=== PATIENT | male | born 1965 | race Caucasian/White ===

== ENCOUNTER 2024-06-01 13:43 | Outpatient (AMB) | payer BC, SELFPAY ==
--- NOTE | 2024-06-01 14:05 | A.OFFVIS_ITS ---
Intake Visit Reasons: erectile dysfunction Intake Note: New Patient presents for initial visit for erectile dysfunction Urology Medications: none Blood Thinner: none Head Golf Professional Required: Yes Head Golf Professional Name: TANIA OCHOABRAN Accompanied by: Self / Same As Patient Allergies No Known Allergies Allergy (Verified 06/01/24 14:38) Medication List - Last Reconciled 06/01/24 by KATY Nolasco No Known Home Meds HPI Comments Details: Howard is a 58-year-old Haitian-speaking male patient of . He has a past medical history of bilateral inguinal hernias and gynecomastia. He presents to the office today as a new patient for ongoing issues with low libido as well as urinary urgency and frequency. He reports having followed up with his PCP at which time recommendations were made for urology referral for further assessment evaluation. He reports low libido has been present for many years and feels this could potentially be related to working 3rd shift. He does report being able to obtain and maintain erections however finds sexual desire to be difficult. He also reports noting episodes of urinary urgency and frequency. He otherwise denies hematuria, dysuria, foul smelling urine, changes to urinary stream, flank pain, fever, and or chills. We discussed at length potential causes of low libido as well as lower urinary tract symptoms patient is experiencing. In office urinalysis results reviewed with the patient today. He otherwise offers no other issues or concerns at this time. [facility] Medical History Inguinal hernia, bilateral Hepatitis A antibody positive Gynecomastia Surgical History History of inguinal hernia repair Review of Systems Const All systems reviewed & are unremarkable except as noted in HPI and below Physical Exam Const General: cooperative, healthy appearing, comfortable, no acute distress, well developed, alert and awake Orientation/consciousness: patient oriented x3 Limitations: language barrier HEENT Head: Yes normal to inspection, Yes normocephalic and Yes atraumatic Ears: hearing grossly normal bilaterally Eyes General: appearance normal, both eyes and all related structures Neck Neck: Yes normal visual inspection and Yes trachea midline Chest Chest palpation & inspection: normal inspection of the chest Resp Effort & Inspection: normal respiratory effort and able to speak in complete sentences Cardio Rate: regular rate GI Inspection: Yes normal to inspection General: Yes no CVA tenderness Back/Spine/Pelvis Back: no CVA tenderness Skin General skin exam: no rashes or lesions noted Neuro General: patient oriented x3 Extrem General: Yes normal to inspection Psych Appearance: grossly normal and well kempt Mental Status: mental status grossly normal Speech and movement: Normal speech and movement present and Clear speech present Affect: normal affect Attitude: cooperative Thought process: Normal thought process present Thought content: Normal thought content present Insight: Fair insight present (Psych) Judgement: Fair judgement present (Psych) Results AMB Urinalysis, Automated UA Leukoctes 0 Gonzalo/uL Last Edit by [employer] on 06/01/24 14:18 UA Nitrite Last Edit by [employer] on 06/01/24 14:18 UA Urobilinogen 0.2 mg/dL Last Edit by [employer] on 06/01/24 14:18 UA Protein 0 mg/dL Last Edit by [employer] on 06/01/24 14:18 UA pH 6.0 Last Edit by [employer] on 06/01/24 14:18 UA Blood 10 Toñito/uL Last Edit by [employer] on 06/01/24 14:18 UA Specific [place] 1.010 Last Edit by [employer] on 06/01/24 14:18 UA Ketone Last Edit by [employer] on 06/01/24 14:18 UA Bilirubin 0 mg/dL Last Edit by [employer] on 06/01/24 14:18 UA Glucose 0 mg/dL Last Edit by [employer] on 06/01/24 14:18 Results Reviewed Results Reviewed: Laboratory Last Values Urine pH (Auto) 6.0 06/01/24 14:07 Specific [place] (Auto) 1.010 06/01/24 14:07 Urine Protein (Auto) 0 mg/dL 06/01/24 14:07 Glucose (UA)(Auto) 0 mg/dL 06/01/24 14:07 Urine Blood (Auto) 10 Toñito/uL 06/01/24 14:07 Urine Bilirubin (Auto) 0 mg/dL 06/01/24 14:07 Urine Urobilinogen (Auto) 0.2 mg/dL 06/01/24 14:07 Leukocyte Esterase (Auto) 0 Gonzalo/uL 06/01/24 14:07 Assessment & Plan Assessment & Plan (1) Low libido: Code(s): R68.82 - Decreased libido Category: Medical (2) Urinary frequency: Code(s): R35.0 - Frequency of micturition Category: Medical (3) Urinary urgency: Code(s): R39.15 - Urgency of urination Category: Medical Plan In office urinalysis results reviewed with the patient today; as noted above. Discussed obtaining testosterone and PSA for further assessment evaluation. Will obtain retroperitoneal ultrasound for further assessment evaluation. Discussed lifestyle modifications to assist with lower urinary tract symptoms as well as low libido. Follow-up in 1-3 months with imaging and labs to be completed prior; or sooner with any issues, concerns, and or questions. Orders: Orders Testosterone, Free/Total Today E11.69 - Type 2 diabetes mellitus with other specified complication, N52.1 - Erectile dysfunction due to diseases classified elsewhere US retroperitoneal comp Today R35.0 - Frequency of micturition, R39.15 - Urgency of urination, R68.82 - Decreased libido AMB Urinalysis Automated Today Z13.9 - Encounter for screening, unspecified Prostate Specific Antigen Today R35.0 - Frequency of micturition, R39.15 - Urgency of urination, R68.82 - Decreased libido Patient Instructions: The patient had an opportunity to ask questions regarding the treatment plan. All questions were answered. Physical exam, labs, and imaging were discussed and reviewed in detail. As well as risks, benefits, and discussion of treatment choices. No major barriers to understanding were identified. The patient expressed understanding and agreement with the above treatment plan. The patient was made aware they should contact our office by phone for worsening of their current condition, the appearance of new symptoms, or with any questions or concerns. Compliance is encouraged with any medications and follow up testing that is ordered. It is a privilege to be allowed the opportunity to participate in? your urological care.? Again, if you have any questions or concerns If you have any questions or concerns please do not hesitate to contact me. The office is [phone]. This note is constructed using voice recognition software. While every effort has been made to ensure accuracy hat binder errors may have been included. Yours sincerely, KATY Nolasco Coding Level of Care Code New Pt Level 3 (06489) Diagnoses Low libido R68.82 Urinary frequency R35.0 Urinary urgency R39.15
== END 2024-06-01 14:44 | disposition home or self-care (01) ==
PROVIDERS: PCP Physician Assistant Medical; Visit Provider Nurse Practitioner Family
DX: R68.82 Decreased libido (principal); R35.0 Frequency of micturition; R39.15 Urgency of urination; Z13.9 Encounter for screening, unspecified
CPT/HCPCS: 99203

== ENCOUNTER → 2024-06-01 13:43 | Outpatient (BNVA) | payer BC, SELFPAY | PROVIDERS: PCP Physician Assistant Medical; Visit Provider Nurse Practitioner Family | DX: E11.69 Type 2 diabetes mellitus with other specified complication (principal); N52.1 Erectile dysfunction due to diseases classified elsewhere; R68.82 Decreased libido; R35.0 Frequency of micturition; R39.15 Urgency of urination | CPT/HCPCS: 81003 ==

== ENCOUNTER 2024-06-11 10:50 | Outpatient (REF) | payer BC, SELFPAY ==
[2024-06-11 12:29] LABS: Prostate Specific Antigen 0.39 ng/mL (<0.05-4.0)
[2024-06-17 20:24] LABS: Testosterone, Total 389 ng/dL (250-1100)
== END 2024-06-11 10:51 | disposition home or self-care (01) ==
LOC: HO.10HDL 10:50
PROVIDERS: Visit Provider Nurse Practitioner Family
DX: Z12.5 Encounter for screening for malignant neoplasm of prostate (principal); E11.69 Type 2 diabetes mellitus with other specified complication; R39.15 Urgency of urination; N52.1 Erectile dysfunction due to diseases classified elsewhere; R35.0 Frequency of micturition; R68.82 Decreased libido
CPT/HCPCS: 36415; 84153; 84402; 84403

== ENCOUNTER 2024-07-09 13:52 | Outpatient (REF) | payer BC, SELFPAY ==
--- NOTE | ~2024-07-09 | US_ITS ---
EXAMINATION: US RETROPERITONEUM HISTORY: R68.82 - frequency of urination TECHNIQUE: Real-time grayscale ultrasound imaging of the kidneys was performed and images were reviewed. COMPARISON: There are no prior studies for comparison. FINDINGS: Right kidney: The right kidney measures 10.7 x 5.4 x 6.6 cm. Renal parenchymal echotexture and thickness are normal. There are no masses. There is no hydronephrosis or renal calculi. Left Kidney: The left kidney measures 10.2 x 7.1 x 5.2 cm. Renal parenchymal echotexture and thickness are normal. There are no masses. There is no hydronephrosis or renal calculi. The urinary bladder is unremarkable. Bilateral ureteral jets are identified. Prior to voiding, the urinary bladder measured 11.0 x 8.5 x 7.9 cm for an estimated volume of 390 mL. After voiding, the urinary bladder measured 5.0 x 2.2 x 4.3 cm, for an estimated volume of 25 mL. The prostate measures 3.7 x 4.1 x 3.7 cm. There is a tiny cyst in the prostate. US/US retroperitoneal comp IMPRESSION: Unremarkable renal ultrasound. Post void bladder residual 25 mL. Electronically signed by: Franky Chaparro MD 07/13/2024 07:18 AM EST
== END 2024-07-09 13:53 | disposition home or self-care (01) ==
LOC: HO.US 13:52
PROVIDERS: PCP Physician Assistant Medical; Visit Provider Nurse Practitioner Family
DX: R35.0 Frequency of micturition (principal); R39.15 Urgency of urination; R68.82 Decreased libido
CPT/HCPCS: 76770

== ENCOUNTER → 2024-07-09 13:54 | Outpatient (BNV) | payer BC, SELFPAY | PROVIDERS: PCP Physician Assistant Medical; Visit Provider Radiology Diagnostic Radiology | DX: R35.0 Frequency of micturition (principal) | CPT/HCPCS: 76770 ==

== ENCOUNTER 2024-08-31 14:43 | Outpatient (AMB) | payer BC, SELFPAY ==
--- NOTE | 2024-08-31 14:52 | MHC.OFFVIS ---
Intake Visit Reasons: 1-3 M Testo/PSA/US(set) Intake Note: Patient presents today for follow visit on: erectile dysfunction, ultrasound and lab results Imaging Completed: 07/09/24 PSA: 0.39 Testosterone: 389; Free Testosterone: 56 Urology Medications: none Blood Thinner: none PVR: 0ml's Offset Lithographic Press Setter Required: Yes Offset Lithographic Press Setter Name: [id number] Accompanied by: Self / Same As Patient Allergies No Known Allergies Allergy (Verified 08/31/24 15:30) Medication List - Last Reconciled 08/31/24 by KATY Nolasco No Known Home Meds HPI Comments Details: Howard is a 59 year-old Citizen Of [place]-speaking male patient of . He has a past medical history of bilateral inguinal hernias and gynecomastia. He presents to the office today for follow-up. Of note, patient was seen approximately 3 months ago as a new patient for ongoing issues with low libido as well as urinary urgency and frequency at which time a retroperitoneal ultrasound and labs were ordered for further assessment evaluation. These results were communicated and reviewed with the patient today. 07/24 bilateral kidneys are normal in thickness and echotexture. There are no masses, renal calculi, or hydronephrosis noted bilaterally. The urinary bladder is unremarkable. The prostate measures a proximally 34 mL and there is a tiny cyst within the prostate. Postvoid residual was 25 mL. PSA 06/22 0.4 Total testosterone 06/22 389 Free testosterone 06/22 56.0 He does continue to report urinary urgency and frequency as well as low libido. He reports low libido has been present for many years and feels this could potentially be related to working 3rd shift. He does report being able to obtain and maintain erections however finds sexual desire to be difficult. He denies hematuria, dysuria, foul smelling urine, changes to urinary stream, flank pain, fever, and or chills. In office urinalysis results reviewed with the patient today. PVR 0 mL. We discussed at length potential causes of low libido as well as lower urinary tract symptoms patient is experiencing. We discussed further treatment options and risks and benefits of these treatment options. He otherwise offers no other issues or concerns at this time [facility] Medical History Inguinal hernia, bilateral Hepatitis A antibody positive Gynecomastia Surgical History History of inguinal hernia repair Review of Systems Const All systems reviewed & are unremarkable except as noted in HPI and below Physical Exam Const General: cooperative, healthy appearing, comfortable, no acute distress, well developed, alert and awake Orientation/consciousness: patient oriented x3 Limitations: language barrier HEENT Head: Yes normal to inspection, Yes normocephalic and Yes atraumatic Ears: hearing grossly normal bilaterally Eyes General: appearance normal, both eyes and all related structures Neck Neck: Yes normal visual inspection and Yes trachea midline Chest Chest palpation & inspection: normal inspection of the chest Resp Effort & Inspection: normal respiratory effort and able to speak in complete sentences Cardio Rate: regular rate GI Inspection: Yes normal to inspection General: Yes no CVA tenderness Back/Spine/Pelvis Back: no CVA tenderness Skin General skin exam: no rashes or lesions noted Neuro General: patient oriented x3 Extrem General: Yes normal to inspection Psych Appearance: grossly normal and well kempt Mental Status: mental status grossly normal Speech and movement: Normal speech and movement present and Clear speech present Affect: normal affect Attitude: cooperative Thought process: Normal thought process present Thought content: Normal thought content present Insight: Fair insight present (Psych) Judgement: Fair judgement present (Psych) Office Procedures Post Void Residual Post Residual Void Post Void Residual (PVR): 0 13462-[id number] Void Residual by ultrasound Results AMB Urinalysis, Automated UA Leukoctes 0 Gonzalo/uL Last Edit by [employer] on 08/31/24 15:11 UA Nitrite Last Edit by [employer] on 08/31/24 15:11 UA Urobilinogen 0.2 mg/dL Last Edit by [facility] on 08/31/24 15:11 UA Protein 0 mg/dL Last Edit by [facility] on 08/31/24 15:11 UA pH 6.5 Last Edit by [employer] on 08/31/24 15:11 UA Blood 10 Toñito/uL Last Edit by [employer] on 08/31/24 15:11 UA Specific [place] 1.010 Last Edit by [facility] on 08/31/24 15:11 UA Ketone Negative Last Edit by [facility] on 08/31/24 15:11 UA Bilirubin 0 mg/dL Last Edit by Beat[employer] on 08/31/24 15:11 UA Glucose 0 mg/dL Last Edit by [employer] on 08/31/24 15:11 Results Reviewed Results Reviewed: Laboratory Last Values Urine pH (Auto) 6.5 08/31/24 15:09 Specific [place] (Auto) 1.010 08/31/24 15:09 Urine Protein (Auto) 0 mg/dL 08/31/24 15:09 Glucose (UA)(Auto) 0 mg/dL 08/31/24 15:09 Urine Ketones (Auto) Negative 08/31/24 15:09 Urine Blood (Auto) 10 Toñito/uL 08/31/24 15:09 Urine Bilirubin (Auto) 0 mg/dL 08/31/24 15:09 Urine Urobilinogen (Auto) 0.2 mg/dL 08/31/24 15:09 Leukocyte Esterase (Auto) 0 Gonzalo/uL 08/31/24 15:09 Date of Service: 07/09/24 EXAMINATION: US RETROPERITONEUM FINDINGS: Right kidney: The right kidney measures 10.7 x 5.4 x 6.6 cm. Renal parenchymal echotexture and thickness are normal. There are no masses. There is no hydronephrosis or renal calculi. Left Kidney: The left kidney measures 10.2 x 7.1 x 5.2 cm. Renal parenchymal echotexture and thickness are normal. There are no masses. There is no hydronephrosis or renal calculi. The urinary bladder is unremarkable. Bilateral ureteral jets are identified. Prior to voiding, the urinary bladder measured 11.0 x 8.5 x 7.9 cm for an estimated volume of 390 mL. After voiding, the urinary bladder measured 5.0 x 2.2 x 4.3 cm, for an estimated volume of 25 mL. The prostate measures 3.7 x 4.1 x 3.7 cm. There is a tiny cyst in the prostate. IMPRESSION: Unremarkable renal ultrasound. Post void bladder residual 25 mL. Assessment & Plan Assessment & Plan (1) Low libido: Code(s): R68.82 - Decreased libido Category: Medical (2) Urinary frequency: Code(s): R35.0 - Frequency of micturition Category: Medical (3) Urinary urgency: Code(s): R39.15 - Urgency of urination Category: Medical Plan In office urinalysis results with the patient today; as noted above. PVR 0 mL. Recent retroperitoneal ultrasound results reviewed with the patient today; as noted above. Recent labs reviewed with the patient today; as noted above. We discussed at length potential causes for lower urinary tract symptoms and low libido as well as lifestyle modifications that can assist with these urological issues. We discussed further treatment options and risks and benefits of these treatment options. Start Cialis 5 mg daily as discussed and prescribed. Discussed bladder triggers/irritants. Follow-up in 3 months with PVR; or sooner with any issues, concerns, and or questions. Orders: Orders AMB Urinalysis Automated Today Z13.9 - Encounter for screening, unspecified AMB Post Void Residual by ultrasound Today R35.0 - Frequency of micturition Medications: New tadalafil (Cialis) [facility] [employer] [facility] [address] [id number] 5 mg PO DAILY 90 tabs 0RF 90 days Patient Instructions: The patient had an opportunity to ask questions regarding the treatment plan. All questions were answered. Physical exam, labs, and imaging were discussed and reviewed in detail. As well as risks, benefits, and discussion of treatment choices. No major barriers to understanding were identified. The patient expressed understanding and agreement with the above treatment plan. The patient was made aware they should contact our office by phone for worsening of their current condition, the appearance of new symptoms, or with any questions or concerns. Compliance is encouraged with any medications and follow up testing that is ordered. It is a privilege to be allowed the opportunity to participate in? your urological care.? Again, if you have any questions or concerns If you have any questions or concerns please do not hesitate to contact me. The office is [phone]. This note is constructed using voice recognition software. While every effort has been made to ensure accuracy web support engineer errors may have been included. Yours sincerely, KATY Nolasco Coding Level of Care Code Est Pt Level 4 (28145) Diagnoses Low libido R68.82 Urinary frequency R35.0 Urinary urgency R39.15 CPT Codes Post Residual Void - PVR CPT Code: 32630-Qcdp Void Residual by ultrasound ([id number])
--- OUTSIDE RECORDS SUMMARY | 2024-08-31 18:38 | XMS_ITS | Clinical Summary ---
Author Organization [facility] Address [address] [place] [address] Care Team Providers Care Occupational Rehabilitation Aide Name Role Phone Jessica Lopez PA-C Primary Care Provider Source Comments PLEASE NOTE, if this patient is a minor, it may be UNLAWFUL to discuss sensitive information that is contained in these records (such as FAMILY PLANNING, MENTAL HEALTH or SUBSTANCE ABUSE) with the minor patient's parent or other person without the patient's specific authorization.[facility] Allergies No known active allergies Medications meclizine (ANTIVERT) 25 mg tabletIndication s:Dizziness Take 1 Tablet by mouth once as needed for nausea for up to 1 dose 20 Tablet 1 03/21/2022 Active Active Problems Problem Noted Date Diagnosed Date 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 Resolved Problems Problem Noted Date Diagnosed Date Resolved Date Right knee pain 11/23/2015 08/06/2017 Overview (11/23/2015): No trauma. With kneeling. caught x 5 days Immunizations Name Administration Dates Next Due Hep B,adult,adjuvanted (HEPLISAV) 05/02/2023,11/2022 Influenza (FLUBLOK),recombinant,injectable,preservative Free 03/30/2024 MODERNA COVID-19 VACCINE BIVALENT, BLUE CAP, 6M+ 03/21/2022 TDAP 05/08/2016 ZOSTER VACCINE, RECOMBINANT (SHINGRIX) 2,10/25/2021 Family History Medical History Relation Name Comments Diabetes Father Heart Problems Father Hypertension Father Diabetes Mother Seizures Mother Relation Name Status Comments Brother has #7 Alive Father Alive Mother Alive Sister all well #3 Alive Social History Tobacco Use Types Packs/Day Years Used Date Smoking Tobacco: Never Smokeless Tobacco: Never Tobacco Cessation:Counseling Given: No Alcohol Use Standard Drinks/Week Comments Yes 1 (1 standard drink = 0.6 oz pure alcohol) sometimes. occassion social only Social Connections Answer Date Recorded Connectedness 1 03/30/2024 Financial Resource Strain Answer Date R ecorded Financial Resource Strain 1 2023 Stress Answer Date Recorded Stress 1 03/30/2024 Physical Activity Answer Date Recorded Physical Activity 0 02/21/2019 Food Insecurity Answer Date Recorded Food 1 03/30/2024 Transportation Needs Answer Date Record ed Transportation 1 03/30/2024 Housing Stability Answer Date Recorded Housing 1 03/30/2024 Safety and Environment Answer Date Rigo rded Safety 1 10/07/2023 Utilities Answer Date Recorded Utilities 1 03/30/2024 Employment Answer Date Recorded Stress 0 10/25/2021 Sex and Gender Information Value Date Recorded Sex Assigned at Male 07/05/2017 10:11 AM PST Legal Sex Male 1:07 PM PST Gender Identity Male 07/05/2017 10:11 AM PST Sexual Orientation Straight 08/06/2017 5: 52 AM PST 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 on file Not on file Not on file Last Filed Vital Signs Vital Sign Reading Time Taken Comments Blood Pressure 124/82 03/30/2024 3:55 PM EDT Pulse 69 03/30/2024 3:11 PM EDT Temperature 36.8 ??C (98.3 ??F) 03/30/2024 3:11 PM ED T Respiratory Rate 16 03/30/2024 3:11 PM EDT Oxygen Saturation 99% 03/30/2024 3:11 PM EDT Inhaled Oxygen Concentration - - Weight 91.5 kg (201 lb 12.8 oz) 03/30/2024 3:11 PM EDT Height 175.3 cm (5' 9 ) 03/30/2024 3:11 PM EDT Body Mass Index 29.8 03/30/2024 3:11 PM EDT Plan of Treatment Health Maintenance Due Date Last Done Comments CT Colonography 2010 FIT/gFOBT 2010 Fecal DNA 2010 Flexible Sigmoidoscopy 2010 Alcohol and Drug Screen 06/30/2024 03/30/20 24, 10/07/2023, 12/12/2022, Additional history exists Depression Annual Screen 06/30/2024 024, 10/14/2018, 08/06/2017 [id number] ( season) 2024 03/21/2022, 08/03/2021, 09/11/2020, Additional history exists Postponed from 02/29/2024 (Patient postponement) Tobacco Screening 10/06/2024 10/07/2023 Annual Preventive Care Visit 03/30/2025 03/30/2024, 12/12/2022, 10/25/2021, Additional history exists Hypertension Screening (#1) 03/30/2025 Colonoscopy 10/25/2025 10/26/2015, 10/26/2015 Colorectal Cancer Screening 10/25/2025 Imm-DTaP/Tdap/Td (2 - Td or Tdap) 05/08/2026 05/08/2016 Diabetes Screening 04/02/2027 04/02/2024, 0 10/10/2023, 12/20/2022, Additional history exists Lipid Screening 04/02/2029 04/02/2024, 09/28, 12/20/2022, Additional history exists Hepatitis C Screening Completed 12/07/2015 HIV Screening Completed 03/23/2020, 12/07/2015 Imm-Zoster, Recombinant Completed 03/21/2022, 10/25 Imm-Hepatitis B Discontinued 05/02/2023, 04/04/2023 Imm-Influenza Discontinued 03/30/2024 Procedures Procedure Name Priority Date/Time Associated Diagnosis Comments IMAGING SCANNED DOCUMENT 07/09/2024 3:00 AM EST IMAGING SCANNED DOCUMENT 07/09/2024 3:00 AM EST COMPREHENSIVE METABOLIC PANEL Routine 04/02/2024 9:58 AM EDT Mixed hyperlipidemia LIPID PANEL Routine 04/02/2024 9:58 AM EDT Mixed hyperlipidemia ANTIBODY HIV-1&HIV-2 SINGLE RESULT Routine 03/23/2020 9:38 AM EDT Encounter for screening for HIV HEPATITIS A,B,C PANEL Routine 12/07/2015 9:23 AM EDT Routine health maintenance Screening examination for venereal disease COLONOSCOPY Routine 10/26/2015 from Last 3 Months or Most Recently Relevant to Health Maintenance Results * IMAGING SCANNED DOCUMENT (07/09/2024 3:00 AM EST) Only the most recent of2 resultswithin the time period is included. 07/09/2024 3:00 AM EST us Jessica Lopez PA-C SCAN IMAGING Final Result * (ABNORMAL) LIPID PANEL (04/02/2024 9:58 AM EDT) CHOLESTEROL, TOTAL 147 <200 mg/dL [facility] HDL CHOLESTEROL 35(L) > OR = 40 mg/dL [facility] TRIGLYCERIDES 125 <150 mg/dL [facility] LDL-CHOLESTEROL 89 99 mg/dL (calc) [facility] Comment: Reference range: <100 Desirable range <100 mg/dL for primary prevention; ?? <70 mg/dL for patients with CHD or diabetic patients with > or = 2 CHD risk factors. LDL-C is now calculated using the Yen calculation, which is a validated novel method providing better accuracy than the Friedewald equation in the estimation of LDL-C. Dion CARCAMO et al. RENAE. 2013;310(19): 3530-9383 (http://education.Power.com.LendUp/faq/KLJ792) CHOL/HDLC RATIO 4.2 <5.0 (calc) [facility] NON-HDL CHOLESTEROL 112 <130 mg/dL (calc) [facility] Comment: For patients with diabetes plus 1 major ASCVD risk factor, treating to a non-HDL-C goal of <100 mg/dL (LDL-C of <70 mg/dL) is considered a therapeutic option. Blood Blood / Unknown 04/02/2024 9 :58 AM EDT 04/02/2024 9:58 AM EDT Narrative [employer] [facility] - 04/05/2024 10:50 AM EDT FASTING:YES Jessica Lopez PA-C LAB - BLOOD DRAW Final Resul t [facility] [address] [address], [employer] [address] [address] * (ABNORMAL) COMPREHENSIVE METABOLIC PANEL (04/02/2024 9:58 AM EDT) GLUCOSE 95 65 - 99 mg/dL [facility] Comment: ?Fasting reference interval UREA NITROGEN (BUN) 14 7 - 25 mg/dL [facility] CREATININE (blood) 0.96 0.70 - 1.30 mg/dL [facility] EGFR 92 > OR = 60 mL/min/1. 73m2 [facility] BUN/CREATININE RATIO SEE NOTE: [facility] Comment: ?? Not Reported: BUN and Creatinine are within ?? reference range. ? SODIUM 139 135 - 146 mmol/L [facility] POTASSIUM 4.4 3.5 - 5.3 mmol/L [facility] CHLORIDE 103 98 - 110 mmol/L [facility] CARBON DIOXIDE 30 20 - 32 mmol/L [facility] [place] [employer] CALCIUM 9.3 8.6 - 10.3 mg/dL [facility] PROTEIN, TOTAL 6.7 6.1 - 8.1 g/dL [facility] ALBUMIN 4.2 3.6 - 5.1 g/dL [facility] GLOBULIN 2.5 1.9 - 3.7 g/dL (calc) [facility] ALBUMIN/GLOBULI N RATIO 1.7 1.0 - 2.5 (calc) [facility] [employer] BILIRUBIN, TOTAL 0.8 0.2 - 1.2 mg/dL [facility] ALKALINE PHOSPHATASE 37 35 - 144 U/L [facility] AST 79(H) 10 - 35 U/L [facility] ALT 74(H) 9 - 46 U/L [facility] Blood Blood / Unknown 04/02/2024 9 :58 AM EDT 04/02/2024 9:58 AM EDT Narrative [facility] - 04/05/2024 10:50 AM EDT FASTING:YES us Jessica Lopez PA-C LAB - BLOOD DRAW Edited Resu lt - Final Performing Organization Address City/[facility]/ZIP Co de Phone Number [facility] [address] [address], [employer] [address] [address] * HIV-1 & HIV-2 ANTIBODIES (03/23/2020 9:38 AM EDT) [facility] HIV 1 AND 2 ANTIBODY SCREEN NEGATIVE NEGATIVE [facility] Comment: This assay is a 4th generation assay allowing for earlier detection of HIV infection by detecting the presence of the HIV-1 p24 antigen as well as the traditional antibodies to HIV type 1 (including group O) and type 2. ??Use of a 4th generation assay is the current CDC recommendation for HIV screening. Blood Blood / Unknown 03/23/2020 9 :38 AM EDT 03/23/2020 10:09 AM EDT Narrative [facility] - 03/23/2020 3:31 PM EDT [employer], a member of [address] [address] Senior Storage Administrator - Katelyn Sneed MD [place] [id number] ORD# [id number] us Jessica Lopez PA-C LAB - BLOOD DRAW Edited Resu lt - Final Performing Organization Address City/[facility]/ZIP Co de Phone Number [facility] [address], * (ABNORMAL) HEPATITIS A,B,C PANEL (12/07/2015 9:23 AM EDT) HEPATITIS B SURFACE ANTIBODY POSITIVE(A) NEGATIVE [facility] HEPATITIS B SURFACE ANTIGEN NEGATIVE NEGATIVE [facility] HEPATITIS C VIRUS DIAGNOSTIC NEGATIVE NEGATIVE [facility] HEPATITIS A ANTIBODY TOTAL POSITIVE(A) NEGATIVE [facility] HEPATITIS B CORE ANTIBODY POSITIVE(A) NEGATIVE [facility] Blood specimen (specimen) Blood / Unknown 12/07/2015 9:23 AM EDT 12/07/2015 9:25 AM EDT Narrative [facility] - 12/07/2015 12:57 PM EDT [address] [address] PT ID [id number] ORD# [id number] Ramila Swan ANP LAB - BLOOD DRAW Edited Resul t - Final Performing Organization Address City/[facility]/ZIP Co de Phone Number [address] [address], [place] [phone] * COLONOSCOPY (10/26/2015) Provider [facility] PROCEDURES Final Result Performing Organization Address [facility] Co de Phone Number [address] [address], [place] [phone] from Last 3 Months or Most Recently Relevant to Health Maintenance Insurance [employer]/[facility] Member Subscriber Plan / Payer (Ef fective 2021-Present) Name:Howard Augustine Relation to Subscriber:Self Name:Howard Augustine Payer ID:[id number] Type:Indemnity Address: [facility] [address] [place] [address] Care Teams Occupational Rehabilitation Aide Relationship Specialty Start Date End Date Jessica Lopez PA-C [facility] [place] [address] PCP - General FAMILY MEDICINE, [place] 12/24/19
== END 2024-08-31 15:31 | disposition home or self-care (01) ==
PROVIDERS: PCP Physician Assistant Medical; Visit Provider Nurse Practitioner Family
DX: R68.82 Decreased libido (principal); R35.0 Frequency of micturition; R39.15 Urgency of urination; Z13.9 Encounter for screening, unspecified
CPT/HCPCS: 99214

== ENCOUNTER → 2024-08-31 14:43 | Outpatient (BNVA) | payer BC, SELFPAY | PROVIDERS: PCP Physician Assistant Medical; Visit Provider Nurse Practitioner Family | DX: R68.82 Decreased libido (principal); R35.0 Frequency of micturition; R39.15 Urgency of urination | CPT/HCPCS: 51798; 81003 ==

== ENCOUNTER 2024-12-02 15:28 | Outpatient (AMB) | payer BC, SELFPAY ==
--- NOTE | 2024-12-02 15:29 | A.OFFVIS_ITS ---
Intake Visit Reasons: 3M follow up Intake Note: Patient presents today for tele visit follow visit on: erectile dysfunction Urology Medications: Tadalafil Blood Thinner: none Protozoology Teacher Required: Yes Protozoology Teacher Services: Protozoology Teacher Present Protozoology Teacher Name: awais Luu Allergies No Known Allergies Allergy (Verified 12/02/24 15:46) Medication List - Last Reconciled 12/02/24 by KEL Nolasco tadalafil (Cialis) 5 mg PO DAILY 90 days HPI Comments Details: Howard is a 59 year-old Wolof-speaking male patient of Dr. Lopez. He has a past medical history of bilateral inguinal hernias and gynecomastia. He is being followed up on today via video telehealth for his lower urinary tract symptoms as well as low libido. In discussion with the patient today he reports to be doing and feeling well. He denies having had any bothersome urinary issues or concerns since his last office visit. He reports compliance with daily dosing of 5 mg of tadalafil. He discusses feeling this has been helpful in treatment of his lower urinary tract symptoms as well as his overall libido. Previous workup has included a retroperitoneal ultrasound 07/24 bilateral kidneys are normal in thickness and echotexture. There are no masses, renal calculi, or hydronephrosis noted bilaterally. The urinary bladder is unremarkable. The prostate measures approximately 34 mL and there is a tiny cyst within the prostate. Postvoid residual was 25 mL. Labs are as follows: PSA 06/22 0.4 Total testosterone 06/22 389 Free testosterone 06/22 56.0 He denies hematuria, dysuria, foul smelling urine, changes to urinary stream, flank pain, fever, and or chills. We discussed at length potential causes of low libido as well as lower urinary tract symptoms patient was experiencing. We discussed further treatment options and risks and benefits of these treatment options. He otherwise offers no other issues or concerns at this time. [facility] Medical History Inguinal hernia, bilateral Hepatitis A antibody positive Gynecomastia Surgical History History of inguinal hernia repair Review of Systems Const All systems reviewed & are unremarkable except as noted in HPI and below Physical Exam Const General: cooperative, healthy appearing, comfortable, no acute distress, well developed, alert and awake Resp Effort & Inspection: normal respiratory effort and able to speak in complete sentences Psych Appearance: grossly normal Mental Status: mental status grossly normal Speech and movement: Clear speech present Affect: normal affect Attitude: cooperative Thought content: Normal thought content present Insight: Fair insight present (Psych) Judgement: Fair judgement present (Psych) Telehealth Telehealth Telehealth Platform: [employer] Location of provider rendering services: practice address Location of patient: address on file Patient Identification confirmed using: Name, : Yes Telehealth method: video Patient verbally consented to treatment: Yes Patient verbally consented to billing insurance company: Yes Patient informed of any privacy concerns related to visit: Yes Minutes spent on Phone/Video with Pt.: 15 Assessment & Plan Assessment & Plan (1) Low libido: Code(s): R68.82 - Decreased libido Category: Medical (2) Urinary frequency: Code(s): R35.0 - Frequency of micturition Category: Medical (3) Urinary urgency: Code(s): R39.15 - Urgency of urination Category: Medical Plan Continue Cialis 5 mg daily as discussed and prescribed; refill provided. Will obtain testosterone, PSA, and LH in 6 months. Continue with lifestyle modifications to assist with urological issues as discussed. He currently denies any bothersome urinary issues or concerns. He reports be happy with current voiding parameters. All questions were answered. Follow-up in 6 months with labs to be completed prior; or sooner with any issues, concerns, and or questions. Orders: Orders Testosterone, Free/Total 6 Months R68.82 - Decreased libido Prostate Specific Antigen 6 Months R68.82 - Decreased libido Lutenizing Hormone 6 Months R68.82 - Decreased libido Medications: Refilled tadalafil (Cialis) [facility] [employer] [facility] [address] [id number] 5 mg PO DAILY 90 tabs 3RF 90 days Patient Instructions: The patient had an opportunity to ask questions regarding the treatment plan. All questions were answered. Physical exam, labs, and imaging were discussed and reviewed in detail. As well as risks, benefits, and discussion of treatment choices. No major barriers to understanding were identified. The patient exp ressed understanding and agreement with the above treatment plan. The patient was made aware they should contact our office by phone for worsening of their current condition, the appearance of new symptoms, or with any questions or concerns. Compliance is encouraged with any medications and follow up testing that is ordered. It is a privilege to be allowed the opportunity to participate in? your urological care.? Again, if you have any questions or concerns If you have any questions or concerns please do not hesitate to contact me. The office is [phone]. This note is constructed using voice recognition software. While every effort has been made to ensure accuracy electric meter tester shop errors may have been included. Yours sincerely, KATY Nolasco Coding Level of Care Code Tele Est Pt Level 3 (58965) Diagnoses Low libido R68.82 Urinary frequency R35.0 Urinary urgency R39.15
--- OUTSIDE RECORDS SUMMARY | 2024-12-02 17:58 | XMS_ITS | Clinical Summary ---
Author Organization [facility] Address [address] [place] [address] Care Team Providers Care Jail Guard Name Role Phone Jessica Lopez PA-C Primary [...] With kneeling. caught x 5 days Immunizations Immunization Administration Dates Next Due Hep B,adult,adjuvanted (HEPLISAV) [...] 2010 Fecal DNA 2010 Flexible Sigmoidoscopy 2010 Pul-YNXUD-30 ( season) 2024 03/21/2022, 08/03/2021, 09/11/2020, Additional history exists Alcohol and Drug Screen 06/30/2024 03/30/20 24, 10/07/2023, 12/12/2022, Additional history exists Depression Annual Screen 06/30/2024 024, 10/14/2018, 08/06/2017 Annual Wellness (Adult): Indicated (All Coverage) 03/30/2025 03/30/2024, 12/12/2022, 10/25/2021, Additional history exists Anxiety Screening 03/30/2025 03/30/2024 Hypertension Screening (#1) 03/30/2025 Tobacco Screening 03/30/2025 03/30/2024 Colonoscopy 10/25/2025 10/26/2015, 10/26/2015 Colorectal Cancer Screening 10/25/2025 Imm-DTaP/Tdap/Td (2 - Td or Tdap) 05/08/2026 016 Diabetes Screening 04/02/2027 04/02/2024, 0 10/10/2023, 12/20/2022, Additional history exists Lipid Screening 04/02/2029 04/02/2024, 09/28, 12/20/2022, Additional history exists Hepatitis C Screening Completed 12/07/2015 HIV Screening Completed 03/23/2020, 12/07/2015 Imm-Zoster, Recombinant Completed 03/21/2022, 10/25 Imm-Hepatitis B Discontinued 05/02/2023, 04/04/2023 Imm-Influenza Discontinued 03/30/2024 Procedures Procedure Name Priority Date/Time Associated Diagnosis Comments COMPREHENSIVE METABOLIC PANEL Routine 04/02/2024 9:58 AM [...] Recently Relevant to Health Maintenance Results * (ABNORMAL) LIPID PANEL (04/02/2024 9:58 AM EDT) CHOLESTEROL, TOTAL 147 <200 mg/dL [facility] HDL CHOLESTEROL 35(L) > OR = 40 mg/dL [facility] TRIGLYCERIDES 125 <150 mg/dL [facility] LDL-CHOLESTEROL 89 99 mg/dL (calc) [facility] Comment: Reference range: <100 Desirable range <100 mg/dL for primary prevention; ?? <70 mg/dL for patients with CHD or diabetic patients with > or = 2 CHD risk factors. LDL-C is now calculated using the Dion-Pedro calculation, which is a validated novel method providing better accuracy than the Friedewald equation in the estimation of LDL-C. Dion SS et al. RENAE. 2013;310(19): 4680-0573 (http://education.web care [employer]/faq/BSE304) CHOL/HDLC RATIO 4.2 <5.0 (calc) [facility] NON-HDL CHOLESTEROL 112 <130 mg/dL (calc) [facility] Comment: For patients with diabetes plus 1 major ASCVD risk factor, treating to a non-HDL-C goal of <100 mg/dL (LDL-C of <70 mg/dL) is considered a therapeutic option. Blood Blood / Unknown 04/02/2024 9 :58 AM EDT 04/02/2024 9:58 AM EDT Narrative [facility] - 04/05/2024 10:50 AM EDT FASTING:YES us Jessica Lopez PA-C LAB - BLOOD DRAW Final Resul t [facility] [address] [address], [employer] [facility] [address] [place] [address] * (ABNORMAL) COMPREHENSIVE METABOLIC PANEL (04/02/2024 9:58 AM EDT) GLUCOSE 95 65 - 99 mg/dL [facility] Comment: ?Fasting reference interval UREA NITROGEN (BUN) 14 7 - 25 mg/dL [facility] CREATININE (blood) 0.96 0.70 - 1.30 mg/dL [employer] [facility] [employer] [facility] EGFR 92 > OR = 60 mL/min/1. 73m2 [facility] BUN/CREATININE RATIO SEE NOTE: [facility] Comment: ?? Not Reported: BUN and Creatinine are within ?? reference range. ? SODIUM 139 135 - 146 mmol/L [employer] [facility] POTASSIUM 4.4 3.5 - 5.3 mmol/L [facility] CHLORIDE 103 98 - 110 mmol/L [facility] CARBON DIOXIDE 30 20 - 32 mmol/L [employer] [facility] CALCIUM 9.3 8.6 - 10.3 mg/dL [employer] [facility] [employer] [facility] PROTEIN, TOTAL 6.7 6.1 - 8.1 g/dL [employer] [facility] [employer] [facility] ALBUMIN 4.2 3.6 - 5.1 g/dL [employer] [facility] [employer] [facility] GLOBULIN 2.5 1.9 - 3.7 g/dL (calc) [employer] [facility] ALBUMIN/GLOBULI N RATIO 1.7 1.0 - 2.5 (calc) [employer] [facility] BILIRUBIN, TOTAL 0.8 0.2 - 1.2 mg/dL [employer] [facility] [employer] [facility] ALKALINE PHOSPHATASE 37 35 - 144 U/L [employer] [facility] AST 79(H) 10 - 35 U/L [facility] ALT 74(H) 9 - 46 U/L [employer] [facility] Blood Blood / Unknown 04/02/2024 9 :58 AM EDT 04/02/2024 9:58 AM EDT Narrative [facility] - 04/05/2024 10:50 AM EDT FASTING:YES us Jessica Lopez PA-C LAB - BLOOD DRAW Edited Resu lt - Final Performing Organization Address City/[facility]/ZIP Co de Phone Number [facility] [address] [address], [facility] [address] [place] [address] * HIV-1 & HIV-2 ANTIBODIES (03/23/2020 9:38 AM EDT) HIV 1 AND 2 ANTIBODY SCREEN NEGATIVE NEGATIVE [facility] Comment: This assay is a 4th generation [...] AM EDT 03/23/2020 10:09 AM EDT Narrative [facility] - 03/23/2020 3:31 PM EDT [employer] [address] [employer] Sp[employer] - Katelyn Sneed MD [place] [id number] ORD# [id number] us Jessica Lopez PA-C LAB - BLOOD DRAW Edited Resu lt - Final Performing Organization Address City/[facility]/ZIP Co de Phone Number [address] [address], * (ABNORMAL) HEPATITIS A,B,C PANEL (12/07/2015 9:23 AM EDT) HEPATITIS B SURFACE ANTIBODY POSITIVE(A) NEGATIVE [facility] HEPATITIS B SURFACE ANTIGEN NEGATIVE NEGATIVE [facility] HEPATITIS C VIRUS DIAGNOSTIC NEGATIVE NEGATIVE [facility] HEPATITIS A ANTIBODY TOTAL POSITIVE(A) NEGATIVE [facility] HEPATITIS B CORE ANTIBODY POSITIVE(A) NEGATIVE [facility] Blood specimen (specimen) Blood / Unknown 12/07/2015 9:23 AM EDT 12/07/2015 9:25 AM EDT Narrative [facility] - 12/07/2015 12:57 PM EDT [facility] [address] [place] [address] PT ID [id number] ORD# [id number] Ramila CRANE LAB - BLOOD DRAW Edited Resul t - Final Performing Organization Address City/[facility]/ZIP Co de Phone Number [facility] [address] [place] [address], [place] [phone] * COLONOSCOPY (10/26/2015) Provider [employer] PROCEDURES Final Result Performing Organization Address [facility] Co de Phone Number [facility] [address] [place] [address], from Last 3 Months or Most Recently Relevant to Health Maintenance Insurance [place] Care Teams Jail Guard Relationship Specialty Start Date End Date Jessica Lopez PA-C [address] [place] [address] PCP - General FAMILY MEDICINE [place] 12/24/19
== END 2024-12-02 16:30 | disposition home or self-care (01) ==
LOC: HO.HUSH 15:28
PROVIDERS: PCP Physician Assistant Medical; Visit Provider Nurse Practitioner Family
DX: R68.82 Decreased libido (principal); R35.0 Frequency of micturition; R39.15 Urgency of urination
CPT/HCPCS: 99213

== ENCOUNTER → 2024-12-02 15:28 | Outpatient (BNVA) | payer BC, SELFPAY | PROVIDERS: PCP Physician Assistant Medical; Visit Provider Nurse Practitioner Family | DX: Z13.89 Encounter for screening for other disorder (principal) ==

== ENCOUNTER 2025-05-28 09:08 | Outpatient (REF) | payer BC, SELFPAY ==
[2025-05-28 10:52] LABS: Prostate Specific Antigen 3.10 ng/mL (<0.05-4.0)
[2025-06-02 08:48] LABS: Testosterone, Free 71.6 pg/mL (35.0-155.0)
== END 2025-05-28 09:09 | disposition home or self-care (01) ==
LOC: HO.LAB 09:08
PROVIDERS: Visit Provider Nurse Practitioner Family
DX: Z12.5 Encounter for screening for malignant neoplasm of prostate (principal); R68.82 Decreased libido
CPT/HCPCS: 36415; 83002; 84153; 84402; 84403

== ENCOUNTER 2025-06-06 15:52 | Outpatient (AMB) | payer BC, SELFPAY ==
--- NOTE | 2025-06-06 15:53 | MHC.OFFVIS ---
Intake Visit Reasons: 6m/Labs SET Intake Note: Patient is present for 6M/LABS Urology Medication:TADALAFIL Antibiotic Allergy:NONE Blood Thinner:NONE Instructional Technology Facilitator Required: Yes Instructional Technology Facilitator Services: Instructional Technology Facilitator Present Instructional Technology Facilitator Name: Hodan [id number] Allergies No Known Allergies Allergy (Verified 06/06/25 16:05) Medication List - Last Reconciled 06/06/25 by KAYT Nolasco tadalafil (Cialis) 5 mg PO DAILY 90 days HPI Comments Details: Howard is a 59 year-old Mongolian-speaking male patient of Dr. Lopez. He has a past medical history of bilateral inguinal hernias and gynecomastia. He is being followed up on today via telehealth for his lower urinary tract symptoms as well as low libido. In discussion with the patient today he reports to be doing and feeling well. He reports since his last office visit here he has since followed up with his primary care as he had been experiencing episodes of dysuria primarily in the evening and or at night. He reports he was given an antibiotic therapy that improved his dysuria however feels symptoms have returned. Most recent testosterone and PSA results reviewed with the patient today as noted and trended below. We did review increase in PSA over the last 11 months. We did discussed potential causes of increase in PSA. He does continue to report low libido. He reports feeling low-dose Cialis had been helpful however has since ran out of refills and has not been taking the medication. Previous workup has included a retroperitoneal ultrasound 07/24 bilateral kidneys are normal in thickness and echotexture. There are no masses, renal calculi, or hydronephrosis noted bilaterally. The urinary bladder is unremarkable. The prostate measures approximately 34 mL and there is a tiny cyst within the prostate. Postvoid residual was 25 mL. Labs are as follows: PSA 06/22 0.4, 05/24 3.1 Total testosterone 06/22 389, 05/24 456 Free testosterone 06/22 56.0, 05/24 71.6 He denies hematuria, foul smelling urine, changes to urinary stream, flank pain, fever, and or chills. We discussed at length potential causes of low libido as well as dysuria. We discussed obtaining urinalysis for further assessment evaluation. We also discussed potential for prostatitis. Will obtain UA for further assessment evaluation. We discussed further treatment options and risks and benefits of these treatment options. He otherwise offers no other issues or concerns at this time. [facility] Medical History Inguinal hernia, bilateral Hepatitis A antibody positive Gynecomastia Surgical History History of inguinal hernia repair Review of Systems Const All systems reviewed & are unremarkable except as noted in HPI and below Physical Exam Const General: cooperative, healthy appearing, comfortable, no acute distress, well developed, alert and awake Orientation/consciousness: patient oriented x3 Limitations: language barrier Resp Effort & Inspection: able to speak in complete sentences Neuro General: patient oriented x3 Psych Appearance: grossly normal Mental Status: mental status grossly normal Speech and movement: Clear speech present Affect: normal affect Attitude: cooperative Thought content: Normal thought content present Insight: Fair insight present (Psych) Judgement: Fair judgement present (Psych) Telehealth Telehealth Telehealth Platform: Telephone Location of provider rendering services: practice address Location of patient: address on file Patient Identification confirmed using: Name, : Yes Telehealth method: voice only Patient verbally consented to treatment: Yes Patient verbally consented to billing insurance company: Yes Patient informed of any privacy concerns related to visit: Yes Minutes spent on Phone/Video with Pt.: 25 Assessment & Plan Assessment & Plan (1) Low libido: Code(s): R68.82 - Decreased libido Category: Medical (2) Urinary frequency: Code(s): R35.0 - Frequency of micturition Category: Medical (3) Urinary urgency: Code(s): R39.15 - Urgency of urination Category: Medical (4) Dysuria: Code(s): R30.0 - Dysuria Category: Medical Plan Continue Cialis 5 mg daily as discussed and prescribed; refill provided. We discussed obtaining urinalysis for further assessment evaluation. We discussed potential for urinary tract infection verses prostatitis given increase in PSA as well as intermittent lower urinary tract symptoms he has been experiencing. Continue Cialis 5 mg daily as discussed and prescribed; refill provided Will repeat PSA All questions were answered. Follow-up in 2-4 weeks with urine culture/urinalysis to be completed prior; or sooner with any issues, concerns, and or questions. Orders: Orders UA CC w/rflx Micro + Cult Today R30.0 - Dysuria Prostate Specific Antigen Today R97.20 - Elevated prostate specific antigen [PSA] Medications: Refilled tadalafil (Cialis) [facility] DR33 [id number] 5 mg PO DAILY 90 tabs 3RF 90 days Patient Instructions: The patient had an opportunity to ask questions regarding the treatment plan. All questions were answered. Physical exam, labs, and imaging were discussed and reviewed in detail. As well as risks, benefits, and discussion of treatment choices. No major barriers to understanding were identified. The patient expressed understanding and agreement with the above treatment plan. The patient was made aware they should contact our office by phone for worsening of their current condition, the appearance of new symptoms, or with any questions or concerns. Compliance is encouraged with any medications and follow up testing that is ordered. It is a privilege to be allowed the opportunity to participate in? your urological care.? Again, if you have any questions or concerns If you have any questions or concerns please do not hesitate to contact me. The office is [phone]. This note is constructed using voice recognition software. While every effort has been made to ensure accuracy nursing admin errors may have been included. Yours sincerely, KATY Nolasco Coding Level of Care Code Tele Est Pt Level 3 (54216) Complex visit Add On G2211 Diagnoses Low libido R68.82 Urinary frequency R35.0 Urinary urgency R39.15 Dysuria R30.0
== END 2025-06-06 16:30 | disposition home or self-care (01) ==
LOC: HO.HUSH 15:52
PROVIDERS: PCP Physician Assistant Medical; Visit Provider Nurse Practitioner Family
DX: R68.82 Decreased libido (principal); R35.0 Frequency of micturition; R39.15 Urgency of urination; R30.0 Dysuria
CPT/HCPCS: 98968